=== PATIENT | female | born 2005 | race Caucasian/White ===

== ENCOUNTER 2023-12-28 23:31 | Emergency (ER) | payer MEDICAID, OTHER ==
[~2023-12-28] VITALS: Ht 162.6 cm; Wt 61.2 kg
[2023-12-29] MEDS: IV NS 0.9% 1,000 ML BAG IV ONE (00:30)
[2023-12-29] MEDS: ONDANSETRON HCL/PF 4 MG/2 ML VIAL IVP ONE (00:30)
[2023-12-29] MEDS ORDERED: ONDANSETRON HCL/PF 4 MG/2 ML VIAL ONE ×2 (00:37→03:15)
[2023-12-29 00:56] LABS: BASOPHILS % (AUTO) 0.2 % (0.0-2.0); EOSINOPHILS % (AUTO) 0.1 % (0.0-6.0); HEMATOCRIT 41 % (33-45); HEMOGLOBIN 13.4 g/dL (11.5-14.8); LYMPHOCYTES # (AUTO) 1.7 K/uL (0.8-4.8); LYMPHOCYTES % (AUTO) 8.9 % (20.0-44.0); MEAN CORPUSCULAR HEMOGLOBIN 29 PG (26.0-33.0); MEAN CORPUSCULAR HGB CONC 33 g/dl (31.0-36.0); MEAN CORPUSCULAR VOLUME 88 fL (82-100); MONOCYTES # (AUTO) 1.1 K/uL (0.1-1.30); MONOCYTES % (AUTO) 5.7 % (2.0-12.0); NEUTROPHILS # (AUTO) 15.9 K/uL (1.8-8.9); NEUTROPHILS % (AUTO) 85.1 % (43.0-81.0); PLATELET COUNT (AUTO) 324 K/uL (150-450); RED BLOOD CELL COUNT(AUTO) 4.59 MIL/uL (4.0-5.2); RED CELL DISTRIBUTION WIDTH 13.5 % (11.5-15.0); WHITE BLOOD COUNT (AUTO) 18.7 K/uL (4.3-11.0)
[2023-12-29 01:08] LABS: CREATININE 0.9 mg/dL (0.6-1.3); POTASSIUM 3.3 mmol/L (3.5-5.1)
[2023-12-29 01:14] LABS: ALBUMIN 4.6 g/dL (3.4-5.0); BILIRUBIN,DIRECT 0.2 mg/dL (0.0-0.2); BILIRUBIN,TOTAL 0.8 mg/dL (0.2-1.0); TOTAL PROTEIN, SERUM 8.5 g/dL (6.4-8.2)
[2023-12-29 02:12] LABS: APPEARANCE,URINE CLEAR (CLEAR); BILIRUBIN,URINE NEGATIVE (NEGATIVE); BLOOD, URINE NEGATIVE Ery/uL (NEGATIVE); COLOR,URINE YELLOW (YELLOW); KETONES,URINE 2+ mg/dL (NEGATIVE); LEUKOCYTE ESTERASE ,URINE NEGATIVE (NEGATIVE); NITRITE, URINE NEGATIVE (NEGATIVE); PH,URINE 5.5 (5.0-8.0); PROTEIN,URINE NEGATIVE (NEGATIVE); UGLUCOSE NEGATIVE (NEGATIVE); UROBILINOGEN,URINE 0.2 EU/dL (0.2)
[2023-12-29 02:18] LABS: ADD URINE CULTURE NO; BACTERIA,URINE Rare /HPF (None Seen); PREGNANCY TEST URINE QUAL NEGATIVE (NEGATIVE); SQUAMOUS EPITHELIAL CELL,UR Few /HPF (None Seen); WBC,URINE 0-2 /HPF (0-3)
[2023-12-29] MEDS: ONDANSETRON HCL/PF - ER 4 MG/2 ML VIAL IV ONE (03:00)
[2023-12-29] MEDS ORDERED: ONDA4TAB11 PO (03:37)
[2023-12-29 04:15] VITALS: BP 125/74; TEMP 98.4; O2SAT 97
== END 2023-12-29 04:16 | disposition home or self-care (01) ==
LOC: ER 23:42
DX: R11.2 Nausea with vomiting, unspecified (principal); F15.90 Other stimulant use, unspecified, uncomplicated; R10.2 Pelvic and perineal pain; Z79.899 Other long term (current) drug therapy
CPT/HCPCS: 99284; 96374; 96361; 93005; 96376; 85025; 80048; 83690; 80076; 84703; 81001; 36415; J2405 ×2; J7030

== ENCOUNTER 2024-03-05 08:54 | Emergency (ER) | payer OTHER ==
[~2024-03-05] VITALS: Ht 167.6 cm; Wt 59.9 kg
[~2024-03-05 08:54] MED LIST: ONDA4TAB11 PO
[2024-03-05] MEDS ORDERED: ACETAMINOPHEN ES 500 MG TABLET ONE (10:00)
[2024-03-05] MEDS: ACETAMINOPHEN ES 500 MG TABLET PO ONE (10:10)
[2024-03-05] MEDS: dexaMETHasone SOD PHOSPHATE 10 MG/ML VIAL IV ONE (10:24)
[2024-03-05] MEDS: diphenhydrAMINE HCL 50 MG/ML VIAL IV ONE (10:24)
[2024-03-05] MEDS: METOCLOPRAMIDE HCL 10 MG/2 ML VIAL IV ONE (10:24)
[2024-03-05] MEDS: IV NS 0.9% 1,000 ML BAG IV ONE (10:25)
[2024-03-05] MEDS ORDERED: IBUP-1955 PO (10:58)
[2024-03-05] MEDS ORDERED: ONDA4TAB5 PO (10:58)
[2024-03-05 11:01] LABS: PREGNANCY TEST URINE QUAL NEGATIVE (NEGATIVE)
[2024-03-05 11:09] VITALS: BP 112/80; TEMP 98.6; O2SAT 100
== END 2024-03-05 11:10 | disposition home or self-care (01) ==
LOC: ER 09:03
DX: S06.0XAA Concussion with loss of consciousness status unknown, initial encounter (principal); R11.2 Nausea with vomiting, unspecified; R41.3 Other amnesia; R51.9 Headache, unspecified; W22.02XA Walked into lamppost, initial encounter; Y93.01 Activity, walking, marching and hiking; Y92.89 Other specified places as the place of occurrence of the external cause; Y99.8 Other external cause status
CPT/HCPCS: 99284; 70450; 84703; J7030

== ENCOUNTER 2024-06-30 08:48 | Emergency (ER) | payer OTHER ==
[~2024-06-30] VITALS: Ht 167.6 cm; Wt 49.9 kg
[~2024-06-30 08:48] MED LIST changes: +IBUP-1955 PO; +ONDA4TAB5 PO
[2024-06-30] MEDS ORDERED: ONDANSETRON HCL/PF 4 MG/2 ML VIAL ONE (10:03)
[2024-06-30] MEDS ORDERED: MORPHINE SULFATE INJ 4 MG/ML DISP.SYRIN ONE (10:04)
[2024-06-30 10:09] LABS: BASOPHILS # (AUTO) 0.1 K/uL (0.0-0.2); EOSINOPHILS # (AUTO) 0.2 K/uL (0.0-0.7); HEMATOCRIT 41 % (33-45); HEMOGLOBIN 13.3 g/dL (11.5-14.8); LYMPHOCYTES # (AUTO) 1.9 K/uL (0.8-4.8); LYMPHOCYTES % (AUTO) 23.9 % (20.0-44.0); MEAN CORPUSCULAR HEMOGLOBIN 29 PG (26.0-33.0); MEAN CORPUSCULAR HGB CONC 33 g/dl (31.0-36.0); MEAN CORPUSCULAR VOLUME 88 fL (82-100); MONOCYTES # (AUTO) 0.5 K/uL (0.1-1.30); MONOCYTES % (AUTO) 6.5 % (2.0-12.0); NEUTROPHILS # (AUTO) 5.2 K/uL (1.8-8.9); NEUTROPHILS % (AUTO) 65.6 % (43.0-81.0); PLATELET COUNT (AUTO) 315 K/uL (150-450); RED BLOOD CELL COUNT(AUTO) 4.59 MIL/uL (4.0-5.2); RED CELL DISTRIBUTION WIDTH 13.4 % (11.5-15.0)
[2024-06-30] MEDS: MORPHINE SULFATE INJ 2 MG/ML DISP.SYRIN IV ONE (10:09)
[2024-06-30] MEDS: IV NS 0.9% 500 ML BAG IV ONE (10:09)
[2024-06-30] MEDS: ONDANSETRON HCL/PF 4 MG/2 ML VIAL IVP ONE (10:10)
[2024-06-30 10:24] LABS: CALCIUM, SERUM 9.3 mg/dL (8.5-10.1); CREATININE 0.7 mg/dL (0.6-1.3); POTASSIUM 4.1 mmol/L (3.5-5.1)
[2024-06-30 10:29] LABS: ALBUMIN 4.3 g/dL (3.4-5.0); BILIRUBIN,DIRECT 0.1 mg/dL (0.0-0.2); BILIRUBIN,TOTAL 0.3 mg/dL (0.2-1.0); TOTAL PROTEIN, SERUM 8.1 g/dL (6.4-8.2)
[2024-06-30 10:52] LABS: APPEARANCE,URINE CLEAR (CLEAR); BILIRUBIN,URINE NEGATIVE (NEGATIVE); BLOOD, URINE NEGATIVE Ery/uL (NEGATIVE); COLOR,URINE YELLOW (YELLOW); KETONES,URINE NEGATIVE (NEGATIVE); LEUKOCYTE ESTERASE ,URINE NEGATIVE (NEGATIVE); NITRITE, URINE NEGATIVE (NEGATIVE); PROTEIN,URINE NEGATIVE (NEGATIVE); UGLUCOSE NEGATIVE (NEGATIVE); UROBILINOGEN,URINE 0.2 EU/dL (0.2)
[2024-06-30 13:14] VITALS: BP 129/77; TEMP 98.3; O2SAT 98
== END 2024-06-30 13:15 | disposition home or self-care (01) ==
LOC: ER 08:55
DX: R10.32 Left lower quadrant pain (principal); Z79.899 Other long term (current) drug therapy
CPT/HCPCS: 99284; 74176; 96360; 76856; 85025; 80048; 83690; 80076; 81003; 36415; 84702; J7040; 87086-TC; J2270; J2405